=== PATIENT | female | born 1940 | race Caucasian/White ===

== ENCOUNTER 2021-05-25 09:15 | Inpatient (IN) | payer BC, MEDICAID ==
[2021-05-19 15:26] LABS: CLARITY,URINE CLEAR (Clear); COLOR,URINE YELLOW (Yellow); GLUCOSE, URINE NEGATIVE (Neg); KETONES,URINE NEGATIVE (Neg); LEUKOCYTE ESTERASE ,URINE MODERATE (Neg); NITRITES, URINE POSITIVE (Neg); OCCULT BLOOD,URINE NEGATIVE (Neg); PROTEIN,URINE NEGATIVE (Neg); UROBILINOGEN,URINE 0.2 E.U/dL (0.2-1.0)
[2021-05-19 15:26] LABS: EOSINOPHILS # (AUTO) 0.4 X10'3 (0-0.9); PRE OP HEMOGLOBIN 13.3 g/dL (12.0-16.0); PRE OP PLATELET COUNT 259 X10'3 (140-440)
[2021-05-19 15:27] LABS: BASOPHILS # (AUTO) 0.3 X10'3 (0-0.2); EOSINOPHILS % (AUTO) 3.7 % (0-6); LYMPHOCYTES # (AUTO) 2.7 X10'3 (1.1-4.8); LYMPHOCYTES % (AUTO) 23.5 % (21-51); MEAN CORPUSCULAR HEMOGLOBIN 30.8 PG (27.0-31.0); MEAN CORPUSCULAR HGB CONC 33.3 g/dL (33.0-36.5); MEAN CORPUSCULAR VOLUME 92.4 FL (78-98); MEAN PLATELET VOLUME 9.2 FL (7.4-10.4); MONOCYTES % (AUTO) 8.3 % (2-12); NEUTROPHILS # (AUTO) 7.1 X10'3 (1.8-7.7); NEUTROPHILS % (AUTO) 61.5 % (42-75); PRE OP HEMATOCRIT 39.8 % (35.0-45.0); RED BLOOD COUNT 4.31 X10'6 (4.20-5.60); RED CELL DISTRIBUTION WIDTH 15.6 % (11.5-14.5)
[2021-05-19 15:31] LABS: UA COLLECTION TYPE NON-SPECIFIED
[2021-05-19 15:34] LABS: BACTERIA,URINE 4+ /HPF (Neg); MUCUS STRANDS FEW /LPF (Neg); RBC,URINE NONE SEEN /HPF (0-2); SQUAMOUS EPITHELIAL CELL,UR MANY /LPF (FEW)
[2021-05-19 15:41] LABS: PRE OP PROTIME 10.7 SECONDS (9.0-12.0)
[2021-05-19 15:43] LABS: ALBUMIN 4.1 G/DL (3.4-5.0); ALKALINE PHOSPHATASE 76 IU/L (46-116); BLOOD UREA NITROGEN 14 MG/DL (7-18); BUN/CREATININE RATIO 16.9 (6.6-38.0); CALCIUM 9.1 MG/DL (8.5-10.1); CHLORIDE 100 MMOL/L (99-107); CREATININE 0.83 MG/DL (0.40-0.90); PRE OP ALT 27 U/L (30-65); PRE OP ANION GAP 11 (8-16); PRE OP AST 23 U/L (10-37); PRE OP BILIRUB, TOTAL 0.6 MG/DL (0.0-1.0); PRE OP GLUCOSE 102 MG/DL (70-104); PRE OP POTASSIUM 4.1 MMOL/L (3.4-5.1); PRE OP SODIUM 135 MMOL/L (135-145); TOTAL CARBON DIOXIDE 23.8 MMOL/L (24-32); TOTAL PROTEIN 8.2 G/DL (6.4-8.2); eGFR 66 ML/MIN
[~2021-05-25] VITALS: Ht 165.1 cm; Wt 73.6 kg
[2021-05-25] VITALS (16 sets, daily range): BP systolic 104–182; BP diastolic 59–107
[~2021-05-25 09:15] MED LIST: AMLO10TA PO; CALC-855 PO; MAGN400C PO; SIMV20TA PO; ZINC50TA67 PO; cefazolin/dext.iso 2gm/100ml IV ONE; famotidine 20mg tablet PO ONE; ringers solution, lacted 1,000 ML IV SCH
[2021-05-25] MEDS ORDERED: LIDOcaine 1% (10mg/ml) 2ml vial ONE (13:57)
[2021-05-25] MEDS ORDERED: heparin 10,000 units/1 ML INJ ONE (13:57)
[2021-05-25] MEDS ORDERED: midazolam 1 mg/ML 2ml injection ONE ×2 (14:13→14:52)
[2021-05-25] MEDS ORDERED: fentaNYL/PF 50MCG/1 ML 2ML syringe ONE ×2 (14:14→14:52)
[2021-05-25] MEDS ORDERED: heparin 1,000 UNITS/NS 500ml 500 ML ONE (14:14)
[2021-05-25] MEDS ORDERED: iohexol 300mg/ml 100ml inj. ONE (14:14)
--- NOTE | 2021-05-25 14:24 | NUR ---
Consent signed for OR. Angio nurses here to take pt for angio procedure. Plan is to go to recovery after procedure, or straight to or. angio rn will stay in contact with charge nurse in or uopn completion of angio. Dr. Alexandra was also here to see pt.
--- NOTE | 2021-05-25 16:50 | NUR ---
ALL DC CRITERIA FOR THE ICU HAS BEEN MET. ALL LINES CDI ON LEFT GROIN. 20G PIV IN RIGHT UE RUNNING LR AT100. DENIES PAIN. + DP ON LEFT LE. VSS. PATIENT WITH ONE BAG OF BELONGINGS WITH ANOTHER WITHIN. RN PRESENT TO ACCEPT CARE. Addendum: 05/25/21 at 1710 by Johnathan Barnes RN, RN Amended: Links added.
--- NOTE | 2021-05-25 17:10 | NUR ---
Received pt. Alert and oriented, she was able to scoot herself from gurney to bed, keeping the left leg straight. Left groin art line in place, PIV to right hand with LR at 100ml/hr. Will continue to monitor.
--- NOTE | 2021-05-25 18:35 | NUR ---
Patient in room ICU 2039. I have received report from MITRA GARIBAY and had the opportunity to ask questions and assume patient care.
--- NOTE | 2021-05-25 18:42 | NUR ---
Problems reprioritized. Patient report given, questions answered & plan of care reviewed with LANI Perry.
--- NOTE | 2021-05-25 19:25 | NUR ---
SPOKE WITH SUSANA VIRGEN AND RECEIVED ORDER TO PLACE ROBLEDO IN PT PER PT'S REQUEST. STERILE TECHNIQUE FOLLOWED, IMMEDIATE RETURN OF CLEAR PALE YELLOW URINE. PROCEDURE UNREMARKABLE. PT RESTING COMFORTABLY IN BED.
[2021-05-25] MEDS ORDERED: hydrALAZINE 20mg/ml inj. IV PRN (20:45)
[2021-05-25] MEDS: ringers solution, lacted 1,000 ML IV SCH (21:05)
--- NOTE | 2021-05-25 21:30 | NUR ---
PT TRANSFERRED TO 2039 WITH BELONGINGS, CHART AND MEDS. REPORT GIVEN TO VAISHNAVI GARIBAY AND QUESTIONS ANSWERED.
[2021-05-25] MEDS ORDERED: heparin 25,000 UNIT/250ml bag 250 ML IV SCH (21:55)
[2021-05-25] MEDS: heparin 1,000 UNITS/NS 500ml 500 ML IV SCH (23:03)
[2021-05-25] MEDS: atorvastatin 10mg tablet PO SCH (23:09)
[2021-05-26] VITALS (27 sets, daily range): BP systolic 109–157; BP diastolic 52–92
[2021-05-26] MEDS ORDERED: ceFAZolin/D5W- 1GM premix 50 ML IV ONE
[2021-05-26] MEDS: Melatonin 3mg tablet PO SCH ×2 (03:22→21:00)
[2021-05-26 05:41] LABS: BASOPHILS # (AUTO) 0.1 X10'3 (0-0.2); BASOPHILS % (AUTO) 0.5 % (0-1); EOSINOPHILS # (AUTO) 0.4 X10'3 (0-0.9); EOSINOPHILS % (AUTO) 3.8 % (0-6); HEMATOCRIT 37.1 % (35.0-45.0); HEMOGLOBIN 12.2 g/dl (12.0-16.0); LYMPHOCYTES # (AUTO) 1.8 X10'3 (1.1-4.8); MEAN CORPUSCULAR HEMOGLOBIN 30.6 PG (27.0-31.0); MEAN CORPUSCULAR HGB CONC 32.9 g/dL (33.0-36.5); MEAN CORPUSCULAR VOLUME 92.9 FL (78-98); MEAN PLATELET VOLUME 8.8 FL (7.4-10.4); MONOCYTES # (AUTO) 0.8 X10'3 (0-0.9); MONOCYTES % (AUTO) 7.7 % (2-12); NEUTROPHILS # (AUTO) 7.1 X10'3 (1.8-7.7); PLATELET COUNT 234 X10'3 (140-440); RED CELL DISTRIBUTION WIDTH 15.8 % (11.5-14.5); WHITE BLOOD COUNT 10.2 X10'3 (4.5-11.0)
[2021-05-26 05:49] LABS: ALANINE AMINOTRANSFERASE 26 U/L (12-78); ALBUMIN 3.4 G/DL (3.4-5.0); ALKALINE PHOSPHATASE 63 IU/L (46-116); ANION GAP 8 (8-16); ASPARTATE AMINO TRANSFERASE 22 U/L (10-37); BILIRUBIN,TOTAL 0.5 MG/DL (0.1-1.0); CALCIUM 8.1 MG/DL (8.5-10.1); CHLORIDE 104 MMOL/L (99-107); CREATININE 0.76 MG/DL (0.40-0.90); GLUCOSE 134 MG/DL (70-104); POTASSIUM 3.7 MMOL/L (3.5-5.1); SODIUM 136 MMOL/L (135-145); TOTAL PROTEIN 6.8 G/DL (6.4-8.2); eGFR 73 ML/MIN
[2021-05-26 06:02] LABS: BLOOD UREA NITROGEN 8 MG/DL (7-18); BUN/CREATININE RATIO 10.5 (6.6-38.0)
[2021-05-26] MEDS: amLODIPine 5mg tablet PO SCH (08:00)
[2021-05-26] MEDS: ringers solution, lacted 1,000 ML IV SCH ×2 (10:25→23:45)
[2021-05-26] MEDS: heparin 1,000 UNITS/NS 500ml 500 ML IV SCH (11:03)
[2021-05-26] MEDS ORDERED: heparin 10,000 units/1 ML INJ ONE (13:03)
[2021-05-26] MEDS ORDERED: midazolam 1 mg/ML 2ml injection ONE (14:43)
--- NOTE | 2021-05-26 15:02 | NUR ---
Pt taken to OR at 1430.
[2021-05-26] MEDS ORDERED: fentaNYL /PF 50mcg/ml 5ml ampule ONE (15:06)
[2021-05-26] MEDS ORDERED: propofol inj 20 ML IV ONE (15:10)
[2021-05-26] MEDS ORDERED: ceFAZolin 1000mg inj ONE ×2 (15:10)
[2021-05-26] MEDS ORDERED: rocuronium 10mg/ml inj IV ONE (15:10)
[2021-05-26] MEDS ORDERED: LIDOcaine 2% (20mg/ml) 5ml vial ONE (15:10)
[2021-05-26] MEDS ORDERED: dexamethasone sod phosphate 4mg/ml inj. ONE (15:23)
[2021-05-26] MEDS ORDERED: ondansetron/PF 4mg/2ml inj ONE (15:23)
[2021-05-26] MEDS ORDERED: ePHEDrine 50MG/ML INJ. ONE (15:23)
[2021-05-26] MEDS ORDERED: 0.9 % SODIUM CHLORIDE 10 ML VIAL ONE (15:24)
[2021-05-26] MEDS ORDERED: NORepinephrine 1 mg/ml inj IV ONE (15:27)
[2021-05-26] MEDS ORDERED: proCHLORperazine 10 MG/2 ml inj IV PRN (16:10)
[2021-05-26] MEDS ORDERED: meperidine/PF 25mg/ml syringe IV PRN ×3 (16:10)
[2021-05-26] MEDS ORDERED: hydrALAZINE 20mg/ml inj. IV PRN (16:10)
[2021-05-26] MEDS ORDERED: ondansetron/PF 4mg/2ml inj IV PRN ×3 (16:10→19:10)
[2021-05-26] MEDS ORDERED: acetaminophen 1,000mg/100ml IV 100 ML IV PRN (16:10)
[2021-05-26] MEDS ORDERED: labetalol 20mg/4ml (5mg/ml) syringe IV PRN (16:10)
[2021-05-26] MEDS ORDERED: morphine 2 MG/ML inj. syringe IV PRN (16:10)
[2021-05-26] MEDS ORDERED: ringers solution, lacted 1,000 ML IV SCH (16:10)
[2021-05-26] MEDS ORDERED: heparin 1,000unit/ml 10ml vial 10 ML ONE (16:29)
[2021-05-26] MEDS ORDERED: albumin (Human) 5% 250ml 250 ML IV ONE (17:50)
--- NOTE | 2021-05-26 17:58 | NUR ---
Pt remains in the OR.
[2021-05-26] MEDS ORDERED: nitroGLYCERIN-Tridil 50MG/D5W 250 ML IV ONE (18:15)
[2021-05-26] MEDS ORDERED: sugammadex 200mg/2ml injection IV ONE (18:33)
--- NOTE | 2021-05-26 18:54 | NUR ---
Received from OR via , accompanied by Anesthesiologist DR POWERS and report given by Anesthesiolgist. PT PRESENTS WITH 20 G RIGHT WRIST WITH ART LINE IN LEFT FEMORAL, PT WITH RIGHT INGUINAL DRESSING DRY AND INTACT WITH TEGADERM AND WOUND VAC. VSS. Addendum: 05/26/21 at 1856 by Diandra Barnes RN, RN Amended: Links added.
[2021-05-26] MEDS ORDERED: ceFAZolin/D5W- 1GM premix 50 ML IV SCH (19:00)
[2021-05-26] MEDS ORDERED: metoclopramide 5 mg/ml inj IV PRN (19:10)
[2021-05-26] MEDS ORDERED: HYDROcodone/acetaminophen 10/325mg tab PO PRN ×2 (19:10)
[2021-05-26] MEDS ORDERED: morphine 4 MG/ML inj SYRINge IV PRN ×2 (19:10)
[2021-05-26] MEDS ORDERED: naloxone 0.4 mg/ml inj IV PRN (19:10)
[2021-05-26] MEDS ORDERED: CADD PCA waste documentation MC PRN (19:10)
--- NOTE | 2021-05-26 19:32 | NUR ---
PT RECOVERED IN ICU 2039 WITH PRIMARY RN VAISHNAVI AT BEDSIDE. PT BILATERAL PEDAL PULSES MARKED AND IDENTIFIED, STRONG WITH DOPPLER US. DRESSING TO RIGHT INNER CALF MARKED MARGINS, WITH SPOTTED BLOOD AT THIS TIME. LANI RIGGINS AT BEDSIDE TO OBSERVE WITH US DOPPLER. RIGHT CENTRAL LINE IS SLOWLY OOZING, LANI RIGGINS AWARE AND IS GOING TO CALL MD ONCE THE LAB RESULTS OBTAINED. WOUND VAC SPONGE PULLED DOWN WITHOUT LEAKS AT 75MMHG. 20G RIGHT WRIST STILL RUNNING WITH LR. PT DAUGHTER AT BEDSIDE. VSS. REPORT GIVEN TO VAISHNAVI GARIBAY WHO ACCEPTED CARE. Addendum: 05/26/21 at 194 by Diandra Barnes RN, RN Amended: Links added.
[2021-05-26] MEDS: potassium CL 20mEq in D5-1/2NS 1,000 ML IV SCH (20:57)
[2021-05-26] MEDS: gabapentin 300mg capsule PO SCH (20:58)
[2021-05-26] MEDS: atorvastatin 10mg tablet PO SCH (20:58)
[2021-05-26] MEDS: HYDROcodone/acetaminophen 10/325mg tab PO PRN (22:00)
[2021-05-26] MEDS: potassium cl 20mEq in 1/2 NS 1,000 ML IV SCH (23:33)
[2021-05-27] VITALS (23 sets, daily range): BP systolic 104–146; BP diastolic 42–104
[2021-05-27] MEDS ORDERED: ceFAZolin inj. 1,000 MG in dextrose 5%-water 50ml 50 ML IV SCH ×2
[2021-05-27] MEDS: heparin 1,000 UNITS/NS 500ml 500 ML IV SCH (00:29)
[2021-05-27] MEDS: ceFAZolin inj. 1,000 MG in dextrose 5%-water 50ml 50 ML IV SCH ×3 (00:33→17:04)
[2021-05-27] MEDS: potassium CL 20mEq in D5-1/2NS 1,000 ML IV SCH (03:10)
[2021-05-27 03:49] LABS: BASOPHILS # (AUTO) 0.1 X10'3 (0-0.2); BASOPHILS % (AUTO) 0.7 % (0-1); EOSINOPHILS % (AUTO) 0.1 % (0-6); HEMATOCRIT 32.6 % (35.0-45.0); HEMOGLOBIN 10.4 g/dl (12.0-16.0); LYMPHOCYTES # (AUTO) 0.7 X10'3 (1.1-4.8); LYMPHOCYTES % (AUTO) 3.7 % (21-51); MEAN CORPUSCULAR HEMOGLOBIN 30.7 PG (27.0-31.0); MEAN CORPUSCULAR VOLUME 95.7 FL (78-98); MEAN PLATELET VOLUME 9.4 FL (7.4-10.4); MONOCYTES # (AUTO) 0.8 X10'3 (0-0.9); MONOCYTES % (AUTO) 4.2 % (2-12); NEUTROPHILS # (AUTO) 16.7 X10'3 (1.8-7.7); NEUTROPHILS % (AUTO) 91.3 % (42-75); PLATELET COUNT 206 X10'3 (140-440); RED CELL DISTRIBUTION WIDTH 15.7 % (11.5-14.5); WHITE BLOOD COUNT 18.2 X10'3 (4.5-11.0)
[2021-05-27 04:01] LABS: ALANINE AMINOTRANSFERASE 17 U/L (12-78); ALKALINE PHOSPHATASE 47 IU/L (46-116); ANION GAP 13 (8-16); ASPARTATE AMINO TRANSFERASE 14 U/L (10-37); BILIRUBIN,TOTAL 0.3 MG/DL (0.1-1.0); BLOOD UREA NITROGEN 13 MG/DL (7-18); BUN/CREATININE RATIO 10.9 (6.6-38.0); CALCIUM 7.2 MG/DL (8.5-10.1); CHLORIDE 105 MMOL/L (99-107); CREATININE 1.19 MG/DL (0.40-0.90); GLUCOSE 181 MG/DL (70-104); POTASSIUM 3.9 MMOL/L (3.5-5.1); SODIUM 138 MMOL/L (135-145); TOTAL CARBON DIOXIDE 20.5 MMOL/L (24-32); TOTAL PROTEIN 6.1 G/DL (6.4-8.2); eGFR 44 ML/MIN
[2021-05-27] MEDS: HYDROcodone/acetaminophen 10/325mg tab PO PRN (05:05)
[2021-05-27] MEDS: gabapentin 300mg capsule PO SCH ×2 (09:36→21:41)
[2021-05-27] MEDS: amLODIPine 5mg tablet PO SCH (09:36)
[2021-05-27] MEDS: potassium cl 20mEq in 1/2 NS 1,000 ML IV SCH (12:37)
[2021-05-27] MEDS: atorvastatin 10mg tablet PO SCH (21:41)
[2021-05-27] MEDS: Melatonin 3mg tablet PO SCH (21:41)
[2021-05-27] MEDS: docusate sod 100mg capsule PO SCH (21:41)
[2021-05-28] VITALS (25 sets, daily range): BP systolic 94–140; BP diastolic 43–101
[2021-05-28] MEDS: gabapentin 300mg capsule PO SCH (07:35)
[2021-05-28] MEDS: docusate sod 100mg capsule PO SCH ×2 (07:35→20:04)
[2021-05-28] MEDS: amLODIPine 5mg tablet PO SCH (07:36)
[2021-05-28] MEDS: aspirin 81mg tab.chew PO SCH (07:36)
[2021-05-28 07:49] LABS: BASOPHILS # (AUTO) 0.1 X10'3 (0-0.2); BASOPHILS % (AUTO) 0.4 % (0-1); EOSINOPHILS # (AUTO) 0.3 X10'3 (0-0.9); EOSINOPHILS % (AUTO) 1.5 % (0-6); HEMATOCRIT 28.5 % (35.0-45.0); HEMOGLOBIN 9.2 g/dl (12.0-16.0); LYMPHOCYTES # (AUTO) 2.4 X10'3 (1.1-4.8); LYMPHOCYTES % (AUTO) 14.4 % (21-51); MEAN CORPUSCULAR HEMOGLOBIN 30.7 PG (27.0-31.0); MEAN CORPUSCULAR HGB CONC 32.4 g/dL (33.0-36.5); MEAN CORPUSCULAR VOLUME 94.7 FL (78-98); MEAN PLATELET VOLUME 8.7 FL (7.4-10.4); MONOCYTES # (AUTO) 1.6 X10'3 (0-0.9); MONOCYTES % (AUTO) 9.6 % (2-12); NEUTROPHILS # (AUTO) 12.5 X10'3 (1.8-7.7); NEUTROPHILS % (AUTO) 74.1 % (42-75); PLATELET COUNT 168 X10'3 (140-440); RED BLOOD COUNT 3.01 X10'6 (4.20-5.60); RED CELL DISTRIBUTION WIDTH 15.7 % (11.5-14.5); WHITE BLOOD COUNT 16.9 X10'3 (4.5-11.0)
[2021-05-28 07:53] LABS: ALANINE AMINOTRANSFERASE 18 U/L (12-78); ALBUMIN 3.1 G/DL (3.4-5.0); ALBUMIN/GLOBULIN RATIO 1.1 (1.1-1.5); ALKALINE PHOSPHATASE 60 IU/L (46-116); ANION GAP 12 (8-16); ASPARTATE AMINO TRANSFERASE 21 U/L (10-37); BILIRUBIN,TOTAL 0.5 MG/DL (0.1-1.0); BLOOD UREA NITROGEN 17 MG/DL (7-18); CALCIUM 7.3 MG/DL (8.5-10.1); CHLORIDE 102 MMOL/L (99-107); GLUCOSE 116 MG/DL (70-104); POTASSIUM 3.7 MMOL/L (3.5-5.1); SODIUM 135 MMOL/L (135-145); TOTAL CARBON DIOXIDE 20.8 MMOL/L (24-32); eGFR 53 ML/MIN
[2021-05-28] MEDS: cephalexin 500mg capsule PO SCH ×2 (14:05→20:04)
--- NOTE | 2021-05-28 18:10 | NUR ---
Patient in room ICU 2039. I have received report from Winifred GARIBAY and had the opportunity to ask questions and assume patient care.
[2021-05-28] MEDS: Melatonin 3mg tablet PO SCH (20:03)
[2021-05-28] MEDS: atorvastatin 10mg tablet PO SCH (20:04)
[2021-05-29] VITALS (12 sets, daily range): BP systolic 113–147; BP diastolic 47–63
[2021-05-29] MEDS: cephalexin 500mg capsule PO SCH ×4 (01:36→19:45)
[2021-05-29 02:27] LABS: BASOPHILS # (AUTO) 0.2 X10'3 (0-0.2); BASOPHILS % (AUTO) 1.1 % (0-1); EOSINOPHILS # (AUTO) 0.3 X10'3 (0-0.9); HEMATOCRIT 27.9 % (35.0-45.0); LYMPHOCYTES # (AUTO) 2.8 X10'3 (1.1-4.8); LYMPHOCYTES % (AUTO) 18.1 % (21-51); MEAN CORPUSCULAR HEMOGLOBIN 30.5 PG (27.0-31.0); MEAN CORPUSCULAR HGB CONC 32.1 g/dL (33.0-36.5); MEAN CORPUSCULAR VOLUME 94.9 FL (78-98); MEAN PLATELET VOLUME 8.3 FL (7.4-10.4); MONOCYTES # (AUTO) 1.8 X10'3 (0-0.9); MONOCYTES % (AUTO) 11.5 % (2-12); NEUTROPHILS # (AUTO) 10.5 X10'3 (1.8-7.7); NEUTROPHILS % (AUTO) 67.3 % (42-75); PLATELET COUNT 165 X10'3 (140-440); RED BLOOD COUNT 2.94 X10'6 (4.20-5.60); RED CELL DISTRIBUTION WIDTH 15.7 % (11.5-14.5); WHITE BLOOD COUNT 15.6 X10'3 (4.5-11.0)
[2021-05-29 02:41] LABS: ALANINE AMINOTRANSFERASE 22 U/L (12-78); ALBUMIN/GLOBULIN RATIO 0.9 (1.1-1.5); ALKALINE PHOSPHATASE 65 IU/L (46-116); ANION GAP 10 (8-16); ASPARTATE AMINO TRANSFERASE 30 U/L (10-37); BILIRUBIN,TOTAL 0.6 MG/DL (0.1-1.0); BLOOD UREA NITROGEN 14 MG/DL (7-18); BUN/CREATININE RATIO 15.9 (6.6-38.0); CALCIUM 7.8 MG/DL (8.5-10.1); CHLORIDE 104 MMOL/L (99-107); CREATININE 0.88 MG/DL (0.40-0.90); GLUCOSE 119 MG/DL (70-104); POTASSIUM 4.1 MMOL/L (3.5-5.1); SODIUM 138 MMOL/L (135-145); TOTAL CARBON DIOXIDE 23.6 MMOL/L (24-32); TOTAL PROTEIN 6.2 G/DL (6.4-8.2); eGFR 62 ML/MIN
--- NOTE | 2021-05-29 06:37 | NUR ---
Patient in room ICU 2039. I have received report from Heidy GARIBAY at bedside and had the opportunity to ask questions and assume patient care.
--- NOTE | 2021-05-29 06:37 | NUR ---
Problems reprioritized. Patient report given, questions answered & plan of care reviewed with Lauren GARIBAY.
--- NOTE | 2021-05-29 08:00 | NUR ---
ambulated patient in room 20 feet, with one person assist. Good balance and gate. Now up to the chair for breakfast. All needs met. Patient comfortable and no discomfort or distress
[2021-05-29] MEDS: aspirin 81mg tab.chew PO SCH (08:14)
[2021-05-29] MEDS: docusate sod 100mg capsule PO SCH ×2 (08:15→19:45)
[2021-05-29] MEDS: amLODIPine 5mg tablet PO SCH (08:15)
--- NOTE | 2021-05-29 08:51 | NUR ---
Problems reprioritized. Patient report given, questions answered & plan of care reviewed with Surgical Nurse Suzette GARIBAY. Patient going to Surgical room 348A. Addendum: 05/29/21 at 1002 by Baldomero Van RN Nurses name is Raina GARIBAY in Surgical
--- NOTE | 2021-05-29 09:01 | NUR ---
Patient in room ICU 2039. I have received report from Baldomero CLINICAL ACCOUNT SPECIALIST and had the opportunity to ask questions and assume patient care.
[2021-05-29] MEDS ORDERED: albuterol 2.5 MG/3 ML nebule NEB PRN (10:55)
--- NOTE | 2021-05-29 18:10 | NUR ---
Patient in room [facility] 348. I have received report from LANI Paris and had the opportunity to ask questions and assume patient care.
--- NOTE | 2021-05-29 18:22 | NUR ---
Problems reprioritized. Patient report given, questions answered & plan of care reviewed with Mai GARIBAY.
[2021-05-29] MEDS: atorvastatin 10mg tablet PO SCH (20:26)
[2021-05-29] MEDS: Melatonin 3mg tablet PO SCH (20:26)
[2021-05-30] MEDS: cephalexin 500mg capsule PO SCH ×3 (01:47→14:01)
--- NOTE | 2021-05-30 06:07 | NUR ---
Problems reprioritized. Patient report given, questions answered & plan of care reviewed with LANI Paris.
[2021-05-30 07:00] VITALS: BP 124/56
[2021-05-30] MEDS: docusate sod 100mg capsule PO SCH (07:58)
[2021-05-30] MEDS: aspirin 81mg tab.chew PO SCH (07:59)
[2021-05-30] MEDS: amLODIPine 5mg tablet PO SCH (07:59)
--- NOTE | 2021-05-30 12:29 | NUR ---
Initial: Pt admitted w/ vascular insufficiency, s/p femoral popliteal bypass w/ small surgical wounds per EMR. Avg intake 53% x 9 meals Regular diet which meets 100% of est energy needs and 71% of est protein needs, current diet tolerated. No chewing or swallowing difficulty noted. No N/V/D reported, LBM 05/29. Will continue to monitor. Rec 1. Continue w/ Regular diet as tolerated 2. Bowel care per rx 3. Weekly wts Addendum: 05/30/21 at [address] Amended: Links added.
[2021-05-30 13:26] VITALS: BP 135/50
[2021-05-30] MEDS ORDERED: CEPH-585 PO (17:28)
--- NOTE | 2021-05-30 18:39 | NUR ---
Patient and daughter educated on wound care, follow-up, activity, medications, and worsening symptoms. IV removed and canula intact. Patient discharged with daughter.
[2021-05-30] MEDS ORDERED: lactobacillus rhamnosus 10,000 MMU CELLS/CAPSULE PO SCH (20:00)
== END 2021-05-30 18:00 | disposition home or self-care (01) | DRG 254 ==
LOC: PAS IN 09:33 → UNDOADMIN 09:33 → CICU 2S 17:02 → ICU 2S 20:30 → SUR 3N 05-29 09:45
PROVIDERS: ADMIT Surgery; ATTEND Surgery
PROC: B41F1ZZ Fluoroscopy of Right Lower Extremity Arteries using Low Osmolar Contrast (ICD-10-PCS; 2021-05-25)
PROC: B41G1ZZ Fluoroscopy of Left Lower Extremity Arteries using Low Osmolar Contrast (ICD-10-PCS; 2021-05-25)
PROC: 04CK0ZZ Extirpation of Matter from Right Femoral Artery, Open Approach (ICD-10-PCS; 2021-05-26)
PROC: 041K0JL Bypass Right Femoral Artery to Popliteal Artery with Synthetic Substitute, Open Approach (ICD-10-PCS; principal; 2021-05-26 14:31)
DX: I70.211 Atherosclerosis of native arteries of extremities with intermittent claudication, right leg (principal); I10 Essential (primary) hypertension
CPT/HCPCS: 36246; 36415; 71045; 75710; 76937; 80053; 81001; 82948; 85025; 85610; 85730; 86885; 86900; 86901; 87081; 88300; 93005; 93971; 94640; 94760; 97110; 97116; 97161; 97530; 99152; 99153; A4618; A6455; A7000; C1729; C1768; C1769; C1894; C9399; G0378; J0690; J1100; J1644; J2001; J2175; J2250; J2270; J2405; J2704; J2765; J3010; J3480; J3490; J7030; J7040; J7060; J7120; P9045; Q9967